=== PATIENT | male | born 1985 | race Caucasian/White ===

== ENCOUNTER 2025-02-11 19:39 | Emergency (ER) | payer SELFPAY ==
[~2025-02-11] VITALS: Ht 172.7 cm; Wt 74.8 kg
--- NOTE | 2025-02-11 21:30 | HMCIMG ---
EXAM: CR Right Foot, 3 views. CLINICAL HISTORY: Pain. COMPARISON: None provided. FINDINGS: No acute fracture or aggressive appearing osseous lesion. Old healed internally fixed distal fibular fracture with metal plate and screws in place. There are broken distal tibiofibular fusion screws. Joint spaces are within normal limits. Diffuse soft tissue swelling, most pronounced in the great toe, with questionable soft tissue laceration and bandaging around the medial aspect of the great toe. Punctate radiopaque shadows in the medial soft tissue of the great toe could be internal or external foreign objects around the bandaging site. IMPRESSION: No acute bony abnormality is evident. Punctate radiopaque shadows in the medial soft tissue of the great toe could be internal or external foreign objects around the bandaging site. Old healed internally fixed distal fibular fracture with metal plate and screws in place. There are broken distal tibiofibular fusion screws. /[place]
[2025-02-11] MEDS ORDERED: AMOX1TAB16 PO (22:10)
--- NOTE | 2025-02-11 22:10 | ERN ---
General Chief Complaint: Laceration/Avulsion Stated Complaint: LACERATION RT GREAT TOE Time Seen by MD: 20:02 Time Seen by Midlevel: 20:02 Source: patient History of Present Illness Initial Comments Patient is a 39-year-old male presenting to the emergency department for evaluation of a laceration to his right foot. Patient states he stepped on glass earlier today. Denies any other symptoms. He states his last tetanus vaccination was three years ago. Allergies: Coded Allergies: No Known Allergies (Unverified Allergy, Unknown, 02/11/25) Home Meds Active Scripts Amoxicillin/Potassium Clav (Amox Tr-K Clv 875-125 mg Tab) 875 Mg-125 Mg Tablet, 1 EACH PO BID for 10 Days, #20 TAB 0 Refills Prov:FER HERNADEZ 02/11/25 Past Medical History Past Medical History: No Pertinent History Past Surgical History: None ROS Dictation CONSTITUTIONAL: Negative except for HPI HEAD/FACE: Negative except for HPI EENT: Negative except for HPI RESPIRATORY: Negative except for HPI GASTROINTESTINAL/ABDOMINAL: Negative except for HPI GENITOURINARY: Negative except for HPI MUSCULOSKELETAL: Negative except for HPI INTEGUMENTARY: Negative except for HPI NEUROLOGICAL/PSYCH: Negative except for HPI HEMATOLOGIC/LYMPHATIC: Negative except for HPI All Systems Negative, Except as noted above. 13 point review of systems assessed and all negative except for above. Physical Exam Physical Exam Dictation PHYSICAL EXAM: GENERAL: alert,, awake oriented x 3 HEENT: EOMI, Sclera non icteric, moist mucosa NECK: Supple, no JVD, trachea midline LUNGS: Clear breath sounds bilaterally. No wheezes HEART: Regular rate and rhythm. Normal S1 and S2, without murmurs ABD: Abdomen soft, nontender. Bowel sounds present EXT: There is a7 cm laceration to the plantar aspect of the right foot just underneath the 1st and 2nd toe, no active bleeding NEURO: Alert and oriented to person, follows commands MDM MDM: Patient is a 39-year-old male presenting to the emergency department for evaluation of a laceration to his right foot. Patient states he stepped on glass earlier today. Denies any other symptoms. He states his last tetanus vaccination was three years ago. On physical examination the patient has a7 cm linear laceration to the plantar aspect of the right foot between the 1st and 2nd digit. There was no active bleeding. An x-ray reveals a possible retained foreign body to the medial aspect of the right great toe. The wound was thoroughly cleansed and I was able to remove a small white appearing trouble from the area. The patient refused lidocaine medication but after I started the laceration repair he agreed to the use of lidocaine. Nine sutures had been placed and the patient no longer wanted the procedure performed. He was able to convince the patient to let me close the remainder of the laceration with three duc in he agreed. A total of nine sutures were placed along with three duc. Patient was started on oral antibiotics outpatient. No need for tetanus at this time given that the last tetanus vaccination was three years ago. I did discussed with the patient that he was at high-risk for infection and he understands this. He was given strict return precautions Differential diagnosis: Laceration, abrasion, contusion, retained foreign body There are no social concerns with this patient. Prescription drug management Prescriptions will include: Augmentin Medical management and examination interpretation discussions were had by me with other qualified healthcare professionals as indicated for the patient's care. ED Course Orders Procedure Category Date Status Time Foot Comp 3+Vws Rt RAD 02/11/25 Resulted 20:14 Vital Signs Date Time Temp Pulse Resp B/P (MAP) Pulse Ox O2 Delivery O2 Flow Rate FiO2 02/11/25 22:14 98.2 95 16 130/80 98 Room Air* 0 21 02/11/25 20:10 98.2 105 16 135/88 98 Room Air* 0 21 02/11/25 19:40 99.0 111 20 137/92 100 Room Air [address] [address] IMAGING REPORT Signed PATIENT: NORA VALVERDE MR#: [id number] : 1985 SEX: M AGE: 39 LOCATION: [facility] ORDER 14 STATUS: REG ER REPORT#: [id number] SERVICE 13 REASON: laceration, r/o fb body ORDERING PHYSICIAN: FER HERNADEZ PROCEDURE: FT 3VW RT - FOOT COMP 3+VWS RT EXAM: CR Right Foot, 3 views. CLINICAL HISTORY: Pain. COMPARISON: None provided. FINDINGS: No acute fracture or aggressive appearing osseous lesion. Old healed internally fixed distal fibular fracture with metal plate and screws in place. There are broken distal tibiofibular fusion screws. Joint spaces are within normal limits. Diffuse soft tissue swelling, most pronounced in the great toe, with questionable soft tissue laceration and bandaging around the medial aspect of the great toe. Punctate radiopaque shadows in the medial soft tissue of the great toe could be internal or external foreign objects around the bandaging site. IMPRESSION: No acute bony abnormality is evident. Punctate radiopaque shadows in the medial soft tissue of the great toe could be internal or external foreign objects around the bandaging site. Old healed internally fixed distal fibular fracture with metal plate and screws in place. There are broken distal tibiofibular fusion screws. /[place] DICTATED BY: NEL BALLESTEROS Jr., MD DATE: 02/11/252228 ELECTRONICALLY SIGNED BY: NEL BALLESTEROS Jr., MD DATE: 02/11/252228 DX & DISP Disposition: Discharge Departure Impression: Primary Impression: Laceration of right foot Condition: Stable Scripts Amoxicillin/Potassium Clav (Amox Tr-K Clv 875-125 mg Tab) 875 Mg-125 Mg Tablet 1 EACH PO BID for 10 Days, #20 TAB 0 Refills Prov: FER HERNADEZ 02/11/25 Additional Instructions: Your laceration was partially repaired with sutures. These need to be removed in 7-10 days. We also placed three duc. These will also need to be removed in 7-10 days. I have given you a prescription for amoxicillin which should help prevent an infection. If you notice any signs of infection that include redness, swelling, excruciating pain, abnormal discharge please report to the ER for further evaluation. Referrals: SELF,REFERRAL (PCP) Time of Disposition: 22:08 I have reviewed the case, and I agree with, Diagnosis and Plan I performed the substantive portion of the visit. I have reviewed and personally made and approve the management plan that is documented in the note by myself or the DIDI. I acknowledge for responsibility for the patient's management plan. FER HERNADEZ Feb 11, 2025 22:10
[2025-02-11 22:14] VITALS: BP 130/80; PULSE 95; RESP 16; TEMP 98.3; O2SAT 98
--- NOTE | 2025-02-11 22:17 | NUR ---
9 SUTURES 3 BOY PLACED WOUND DRESSED BY SIM [facility]ROE AND PT INSTRUCTED ON WOUND CARE AND TO RETURN 7-10 DAYS FOR REMOVAL
--- NOTE | 2025-02-11 22:20 | NUR ---
NEW SOCK PROVIDED TO PT TO COVER DRESSING ON RT FOOT.
--- NOTE | 2025-02-11 22:25 | NUR ---
PT WILL BE DEPARTED WHEN COMPLETED READING PROVIDED MATERIAL
== END 2025-02-11 20:35 | disposition home or self-care (01) ==
LOC: EDH 19:39
DX: S91.111A Laceration without foreign body of right great toe without damage to nail, initial encounter (principal); W22.8XXA Striking against or struck by other objects, initial encounter; Y93.89 Activity, other specified; Y92.89 Other specified places as the place of occurrence of the external cause; Y99.8 Other external cause status
CPT/HCPCS: 12002; 73630; 99283